=== PATIENT | male | born 1975 | race Caucasian/White ===

== ENCOUNTER 2024-08-25 07:55 | Inpatient (IN) ==
--- NOTE | 2024-07-29 09:39 | PAT Medication Instructions ---
Medication Instructions Date of Service July 29, 2024 Home Medications Beet Root 1 tab PO QAM aspirin 81 mg tablet,delayed release 81 mg PO QAM atorvastatin 80 mg tablet 80 mg PO QAM baclofen 10 mg tablet 10 mg PO TID cholecalciferol (vitamin D3) 25 mcg (1,000 unit) tablet (Vitamin D3) 25 mcg PO QID fenofibrate nanocrystallized 145 mg tablet 145 mg PO QAM fluticasone propionate 50 mcg/actuation nasal spray,suspension 1 spray intranasal QAM insulin glargine 100 unit/mL subcutaneous solution (Lantus U-100 Insulin) 30 unit subcut QAM lisinopril 40 mg tablet 40 mg PO QAM metformin 500 mg tablet 1,000 mg PO BID metoprolol succinate 25 mg tablet,extended release 24 hr 25 mg PO QAM multivitamin 1 tab PO QAM omega 5-bcr-bas-fish oil 1,000 mg (120 mg-180 mg) capsule (Fish Oil) 1 cap PO TID potassium 99 mg tablet 99 mg PO QAM pregabalin 150 mg capsule (Lyrica) 150 mg PO BID semaglutide 0.25 mg or 0.5 mg (2 mg/3 mL) subcutaneous pen injector (Ozempic) 0.5 mg subcut WK ticagrelor 60 mg tablet (Brilinta) 60 mg PO BID tramadol 50 mg tablet 50 mg PO BID ASK your prescriber and surgeon aspirin 81 mg tablet,delayed release 81 mg PO QAM ticagrelor 60 mg tablet (Brilinta) 60 mg PO BID STOP 7 days prior to surgery semaglutide 0.25 mg or 0.5 mg (2 mg/3 mL) subcutaneous pen injector (Ozempic) 0.5 mg subcut WK STOP taking 2 weeks before surgery (or as soon as possible if surgery is within 2 weeks) Beet Root 1 tab PO QAM omega 4-mwj-xhm-fish oil 1,000 mg (120 mg-180 mg) capsule (Fish Oil) 1 cap PO TID STOP taking 48 hours before surgery fenofibrate nanocrystallized 145 mg tablet 145 mg PO QAM DO NOT take the morning of surgery cholecalciferol (vitamin D3) 25 mcg (1,000 unit) tablet (Vitamin D3) 25 mcg PO QID lisinopril 40 mg tablet 40 mg PO QAM metformin 500 mg tablet 1,000 mg PO BID multivitamin 1 tab PO QAM potassium 99 mg tablet 99 mg PO QAM Take morning of surgery With a small sip of water, OTHERWISE NOTHING TO EAT OR DRINK AFTER MIDNIGHT: atorvastatin 80 mg tablet 80 mg PO QAM fluticasone propionate 50 mcg/actuation nasal spray,suspension 1 spray intranasal QAM metoprolol succinate 25 mg tablet,extended release 24 hr 25 mg PO QAM pregabalin 150 mg capsule (Lyrica) 150 mg PO BID tramadol 50 mg tablet 50 mg PO BID Take evening before surgery baclofen 10 mg tablet 10 mg PO TID cholecalciferol (vitamin D3) 25 mcg (1,000 unit) tablet (Vitamin D3) 25 mcg PO QID metformin 500 mg tablet 1,000 mg PO BID pregabalin 150 mg capsule (Lyrica) 150 mg PO BID tramadol 50 mg tablet 50 mg PO BID Insulin Dependent Diabetic Patients * Test your blood sugar the morning of surgery * If Blood Sugar is GREATER THAN 150, take HALF of your regular dose of: insulin glargine 100 unit/mL subcutaneous solution (Lantus U-100 Insulin) > Take 15 units * If Blood Sugar is LESS THAN 150, DO NOT TAKE ANY: insulin glargine 100 unit/mL subcutaneous solution (Lantus U-100 Insulin) Other Notes If you have any questions please call us at [phone] or [phone] or [phone] or [phone]
--- NOTE | 2024-08-04 08:57 | Anesthesiology Consultation ---
Date of Service August 04, 2024 Assessment & Plan (1) Encounter for pre-operative examination: - ASA/Brilinta instructions per surgeon/prescriber - Check BSG DOS - Infectious disease screening: Per assessment on 08/04/24- No known recent infectious disease contacts or current infectious disease symptoms. - GLP-1 medication instructions: Patient informed by PAT to stop 7 days prior to surgery- voiced understanding. DOS 08/25. Advised last dose to be 4/2. - Patient acceptable risk for surgery pending surgeon-ordered PCP (Dr. Shane Worthington, 08/06) and cardio ([facility], appt 08/14) preop evaluations. Chart Review Chart Review: Patient seen in Pre Admission Testing Teaching & Discussion Pre-Anesthesia Teaching/Discussion Notes: Instructed NPO after midnight before surgery,except medications with 15 cc of water. Medication instructions provided according to the PAT guidelines. History Surgery Operation Date: 08/25/24 07:45 Proposed Procedures p L3-S1 Decompression and Fusion with Spinal Cord Monitoring - Brennan Ocampo, Height/Weight Height: 6 ft 6 in Weight: 148.7 kg Allergies Allergy/AdvReac Type Severity Reaction Status Date / Time No Known Allergies Allergy Verified 07/23/24 08:34 Medications Home Medications Medication Instructions Recorded Confirmed Last Taken Beet Root 1 tab PO QAM 07/23/24 07/23/24 Unknown aspirin 81 mg tablet,delayed 81 mg PO QAM 07/23/24 07/23/24 Unknown release atorvastatin 80 mg tablet 80 mg PO QAM 07/23/24 07/23/24 Unknown baclofen 10 mg tablet 10 mg PO TID 07/23/24 07/23/24 Unknown cholecalciferol (vitamin D3) 25 25 mcg PO QID 07/23/24 07/23/24 Unknown mcg (1,000 unit) tablet (Vitamin D3) fenofibrate nanocrystallized 145 145 mg PO QAM 07/23/24 07/23/24 Unknown mg tablet fluticasone propionate 50 1 spray intranasal QAM 07/23/24 07/23/24 Unknown mcg/actuation nasal spray,suspension insulin glargine 100 unit/mL 30 unit subcut HS 07/23/24 08/04/24 Unknown subcutaneous solution (Lantus U-100 Insulin) lisinopril 40 mg tablet 40 mg PO QAM 07/23/24 07/23/24 Unknown metformin 500 mg tablet 1,000 mg PO BID 07/23/24 07/23/24 Unknown metoprolol succinate 25 mg 25 mg PO QAM 07/23/24 07/23/24 Unknown tablet,extended release 24 hr multivitamin 1 tab PO QAM 07/23/24 07/23/24 Unknown omega 6-sqq-pjj-fish oil 1,000 mg 1 cap PO TID 07/23/24 07/23/24 Unknown (120 mg-180 mg) capsule (Fish Oil) potassium 99 mg tablet 99 mg PO QAM 07/23/24 07/23/24 Unknown pregabalin 150 mg capsule (Lyrica) 150 mg PO BID 07/23/24 07/23/24 Unknown semaglutide 0.25 mg or 0.5 mg (2 0.5 mg subcut WK 07/23/24 07/23/24 07/22/24 mg/3 mL) subcutaneous pen injector (Ozempic) ticagrelor 60 mg tablet (Brilinta) 60 mg PO BID 07/23/24 07/23/24 Unknown tramadol 50 mg tablet 50 mg PO BID 07/23/24 07/23/24 Unknown Past Medical History Medical History CAD (coronary artery disease) Chronic back pain "2 crushed discs and 1 blown disc" Degenerative disc disease Diabetes mellitus, type 2 IDDM History of myocardial infarction Stent x1 (2022) Follows with [facility] Hyperlipidemia Hypertension Sleep apnea CPAP (no longer uses machine, device recalled) Spinal stenosis Exercise / Class Metabolic Activity III < 4 Walking/Shop/Light housework (uses walker) Past Family History Family History Father Family history of reaction to anesthesia Father: "flat lined" during hip surgery; no further details FHx: myocardial infarction FHx: stroke Past Surgical History Surgical History History of cardiac cath 2022 > stent x1 S/P epidural steroid injection Past Anesthesia History No Hx of Anesthesia Complications * Father: "flat lined" during hip surgery; no further details History of PONV No Hx of Motion Sickness and History of PONV (mild nausea) Social History Smoking Status: Former smoker Do You Dip or Chew Tobacco: No Smoking End Date: Quit 07/08/24, rare cig use since Hx Alcohol Use: No Hx Substance Use: No substance use type: does not use Review of Systems Patient denies chest pain, shortness of breath, dyspnea on exertion, fever, chills, cough, wheezing. Physical Exam Vital Signs BP 117/77 P 82 TEMP 98.5 SP02 96%RA RESP 16 Physical Full cervical extension range of motion. Full TMJ range of motion. TMD > 3.5 finger breaths Mallampati Score I Dentition: missing sides/molars Lungs: clear throughout to auscultation Cardiac: regular rate and rhythm, no murmurs noted Spine: normal Carotid arteries: negative bruit Extremities: no LE edema Short, thick neck Lab Results Anesthesia Preop Results Results Anesthesia Widget: WBC 7.20 K/ul (4.8-10.8) 08/04/24 Hgb 13.0 g/dl (14.0-18.0) L 08/04/24 Hct 38.8 % (42.0-52.0) L 08/04/24 Plt 257 K/uL (130-400) 08/04/24 Na 137 mmol/L (136-145) 08/04/24 K 4.3 mmol/L (3.5-5.1) 08/04/24 Cl 101 mmol/L (98-107) 08/04/24 CO2 31 mmol/L (21-32) 08/04/24 BUN 13 mg/dl (6-23) 08/04/24 Creat 0.94 mg/dl (0.6-1.4) 08/04/24 Glucose Level 168 mg/dl (70-99(Fasting)) H 08/04/24 PT 10.7 Seconds (9.0-12.0) 08/04/24 PTT 24 Seconds (21-31) 08/04/24 INR 1.0 (0.9-1.1) 08/04/24 HA1c 7.1 % (4.5-5.6) H 08/04/24 Urine Color Yellow 08/04/24 Urine Appearance Clear (Clear) 08/04/24 Urine pH 5.5 (4.5-7.5) 08/04/24 Urine Specific [place] 1.007 (1.000-1.030) 08/04/24 Urine Protein Negative (Negative) 08/04/24 Urine Glucose (UA) Negative (Negative) 08/04/24 Urine Ketones Negative (Negative) 08/04/24 Urine Blood Negative (Negative) 08/04/24 Urine Nitrite Negative (Negative) 08/04/24 Urine Bilirubin Negative (Negative) 08/04/24 Urine Urobilinogen Negative (Negative) 08/04/24 Urine Leukocyte Esterase Negative (Negative) 08/04/24 Blood Type B Positive 08/04/24 Antibody Screen NEGATIVE 08/04/24 Testing Laboratory Results Urine nicotine (08/04/24): Pending (surgeon ordered) Electrocardiogram Date: 08/04/24 NSR at 74bpm. "Normal ECG" Chest X-Ray Date: 08/04/24 Findings: + NAD Cardiac Catheterization Date: 07/10/22 Direct stenting pLAD artery 80% reduced to 0% with [place] MYRTLE. LAD proximal 80% stenosis, D1 proximal 80% stenosis. RCA proximal 100% representing a chronic total occlusion (fills via [id number] collaterals). Normal LV systolic function.
[~2024-08-25 07:55] MED LIST: DEXAMETHASONE SOD INJ 4 MG/ML VIAL ONE; GLYCOPYRROLATE 0.2 MG/ML VIAL ONE; LIDOCAINE 2% 2 ML VIAL/AMP(20MG/ML) INFIL ONE; MIDAZOLAM HCL 1 MG/ML 2ML VIAL ONE; ONDANSETRON INJ 2 MG/ML 2 ML VIAL ONE; PROPOFOL IV EMULSION 10 MG/ML 20 ML VIAL IV ONE; ROCURONIUM BROMIDE 10 MG/ML 5 ML VIAL IV ONE; SUGAMMADEX SODIUM 200 MG/2 ML VIAL IV ONE; fentaNYL citrate PF 100 MCG/2 ML VIAL ONE
[2024-08-25] MEDS: LR 15ML/HR IV SCH (08:32)
[2024-08-25] MEDS: ACETAMINOPHEN 500 MG TAB PO SCH (08:52)
[2024-08-25] MEDS: LR 60ML/HR IV SCH (08:52)
[2024-08-25] MEDS: GABAPENTIN 900 MG DOSE PO SCH (08:52)
[2024-08-25] MEDS: CeleBREX 200 MG CAP PO SCH (08:52)
--- NOTE | 2024-08-25 09:20 | History & Physical Bridge Note ---
Date of Service August 25, 2024 History & Physical Bridge Note I have examined the patient, reviewed the History & Physical and in the interval since the performance of the History & Physical I have noted the following changes of clinical significance: no changes noted
--- NOTE | 2024-08-25 09:21 | History & Physical Report ---
Date of Service August 25, 2024 Assessment & Plan (1) Multilevel lumbosacral spondylosis with radiculopathy: Plan: L3-S1 decompression and fusion definitely History of Present Illness Chief Complaint: Back and leg pain Primary Care Provider: Shane Worthington This is a 49-year-old male who presents with chronic persistent back and leg pain after failing course of nonoperative care is here for surgical intervention. Allergies Allergy/AdvReac Type Severity Reaction Status Date / Time shellfish derived Allergy Intermediate severe Verified 08/25/24 08:22 rash with allergy testing Home Medications Medication Instructions Recorded Confirmed Type Beet Root 1 tab PO QAM 07/23/24 08/25/24 History aspirin 81 mg tablet,delayed 81 mg PO QAM 07/23/24 08/25/24 History release atorvastatin 80 mg tablet (Lipitor) 80 mg PO QAM 07/23/24 08/25/24 History baclofen 10 mg tablet 10 mg PO TID 07/23/24 08/25/24 History cholecalciferol (vitamin D3) 25 25 mcg PO DAILY 07/23/24 08/25/24 History mcg (1,000 unit) tablet (Vitamin D3) fenofibrate nanocrystallized 145 145 mg PO QAM 07/23/24 08/25/24 History mg tablet (Tricor) fluticasone propionate 50 1 spray intranasal QAM 07/23/24 08/25/24 History mcg/actuation nasal spray,suspension insulin glargine 100 unit/mL 30 unit subcut HS 07/23/24 08/25/24 History subcutaneous solution (Lantus U-100 Insulin) lisinopril 40 mg tablet (Zestril) 40 mg PO QAM 07/23/24 08/25/24 History metformin 500 mg tablet 1,000 mg PO BID 07/23/24 08/25/24 History metoprolol succinate 25 mg 25 mg PO QAM 07/23/24 08/25/24 History tablet,extended release 24 hr (Toprol XL) multivitamin 1 tab PO QAM 07/23/24 08/25/24 History omega 2-vzu-nsa-fish oil 1,000 mg 1 cap PO TID 07/23/24 08/25/24 History (120 mg-180 mg) capsule (Fish Oil) potassium 99 mg tablet 99 mg PO QAM 07/23/24 08/25/24 History pregabalin 150 mg capsule (Lyrica) 150 mg PO BID 07/23/24 08/25/24 History semaglutide 0.25 mg or 0.5 mg (2 0.5 mg subcut WK 07/23/24 08/25/24 History mg/3 mL) subcutaneous pen injector (Ozempic) ticagrelor 60 mg tablet (Brilinta) 60 mg PO BID 07/23/24 08/25/24 History tramadol 50 mg tablet 50 mg PO BID 07/23/24 08/25/24 History Past Med/Surg History Problem List (Updated 08/25/24 @ 09:21 by Brennan Ocampo DO) Multilevel lumbosacral spondylosis with radiculopathy Encounter for pre-operative examination Medical History CAD (coronary artery disease) Chronic back pain "2 crushed discs and 1 blown disc" Degenerative disc disease Diabetes mellitus, type 2 IDDM History of myocardial infarction Stent x1 (2022) Follows with [facility] Hyperlipidemia Hypertension Sleep apnea CPAP (no longer uses machine, device recalled) Spinal stenosis Surgical History History of cardiac cath 2022 > stent x1 S/P epidural steroid injection Family History Father Family history of reaction to anesthesia Father: "flat lined" during hip surgery; no further details FHx: myocardial infarction FHx: stroke Social History Smoking Status: Former smoker Tobacco Type: Cigarettes Smoking End Date: Quit 07/08/24, rare cig use since; Second Hand Exposure: No; Do You Dip or Chew Tobacco: No; Tobacco Cessation Education Requested by Patient: No Hx Alcohol Use: No Hx Substance Use: No Preferred Language: Kyrgyz Communication Ability: Effective Sanitation Officer Required: No Beliefs That Will Affect Care: None Current Living Situation: Family Current Living Situation Comment: son has been living with patient since back injury Other Information That Helps Us Care for You: No Feels Safe at Home: Yes Safety Concerns: Feels Safe At This Time Assistive Devices: Cane, Glasses and Walker Assistive Devices Comment: rollator Physical Exam Physical Exam: Patient is alert and oriented Heart rate and rhythm Lungs clear Results & Data Results & Data Vital Signs (Past 12 Hours) Vital Signs Temp Pulse Resp BP Pulse Ox O2 Del Method 08/25/24 08:30 Room Air 08/25/24 08:30 36.8 C 84 20 170/93 H 93 Room Air
[2024-08-25] MEDS ORDERED: ePHEDrine sulfate 50 MG/ML AMP IV PRN (09:24)
[2024-08-25] MEDS ORDERED: ONDANSETRON INJ 2 MG/ML 2 ML VIAL IV PRN ×2 (09:24→15:44)
[2024-08-25] MEDS ORDERED: ATROPINE SULFATE 0.1 MG/ML 10ML SYR IV PRN (09:24)
[2024-08-25] MEDS: ceFAZolin 3000MG 3,000 MG/72.5 ML BAG IV SCH ×2 (09:45→18:01)
[2024-08-25] MEDS ORDERED: KETAMINE HCL 10MG/ML SYR ONE (09:46)
[2024-08-25] MEDS ORDERED: ROCURONIUM BROMIDE 10 MG/ML 5 ML VIAL IV ONE ×3 (10:05→11:25)
[2024-08-25] MEDS ORDERED: fentaNYL citrate PF 100 MCG/2 ML VIAL ONE ×2 (10:12→11:47)
[2024-08-25] MEDS: BUPIVACAINE/EPINEPHRINE 0.25% 1:200,000 30 ML VIAL ONE (10:15)
[2024-08-25] MEDS: ceFAZolin 330 MG/ML 1 GM VIAL ONE (12:23)
[2024-08-25] MEDS: FLOSEAL HEMOSTATIC MATRIX 10ML TOP ONE (12:23)
--- NOTE | 2024-08-25 12:42 | Operative Report ---
Post Operative Report Pre & Post Diagnosis Operation Date: 08/25/24 09:35 Pre-Op Diagnosis: #1 multilevel lumbosacral spondylosis with radiculopathy #2 lumbar spinal stenosis #3 obesity Post-Op Diagnosis: Same I identified the patient and participated in the time-out.: Yes Procedure Operation Date: 08/25/24 09:35 Actual Procedures #1 lumbar decompression with bilateral medial facetectomies and foraminotomies L3-L4, L4-L5 and L5-S1. #2 posterior spinal fusion L3-S1. #3 placement posterior segmental instrumentation L3-S1 using Borjas. #4 interbody fusion L3- L4, L4-L5 and L5-S1. #5 placement Spira 13 x 26 mm at L3-L4, 15 x 26 mm x 2 at L4-L5 and 13 x 26 mm x 2 at L5-S1. #6 placement locally harvested morselized autograft posterior gutters. #7 placement infuse collagen sponge, with Koros in the posterior lateral gutters and os design in the interbody space. #8 application of versa wrap over the exposed dura. Surgeon Brennan Ocampo, DO Tractor Drill Operator Laura Zelaya Estimated Blood Loss 650 Findings See Below The patient is 6 foot 6 weighing over 151 kg with a BMI in excess of 38. This combined with an EBL of greater than 650 cc created significant technical difficulty required deepest retractors longer instruments in order to perform his procedure. This had at least 50% increased operative time. I am recommending a modifier 22. Specimens None Indications This is a 49-year-old male that presents above diagnosis. After undergoing an extensive course of nonoperative care is here for surgical invention. Description of Procedure Patient met with identified informed consent obtained. Patient was then taken to the operative suite underwent intubation placed in a prone position on the Spencer table top of the Jm frame. All bony promises well-padded eyes inspected to ensure no external pressure placed upon them. This point lumbar spine was prepped and draped in the normal sterile fashion. Sharp dissection with the assistance of Bovie cautery performed down to and exposing the lamina transverse processes of L3-L4-L5 and the sacral ala bilaterally. From a caudal cephalad fashion complete laminectomy of L5 was performed including bilateral medial facetectomies and foraminotomies addressing all neural compression. Then proceeded with complete laminectomy of L4 again including bilateral medial facetectomies and foraminotomies addressing all neural compression and lastly complete laminectomy of L3 with bilateral medial facetectomies and foraminotomies addressing all neural compression. Pedicle screws then placed in L3-L4-L5 and S1 levels bilaterally with assistance of fluoroscopy and appropriate sized lennie contoured and placed. By way of transforaminal approach on the right discectomy of L5-S1 was performed endplates guided to subcortical bleeding bone and a 13 x 26 mm spiral cage filled with os design bone graft at the position. Then proceeded to the left transforaminal region at L5-S1. Again discectomy performed. Endplates guided to subcortical being bone and a second 13 x 26 mm spiral cage filled with os design bone graft at the position. Then proceeded L4-[address] transforaminal approach on the left discectomy was performed. Endplates guided to subcortical bleeding bone and a 15 x 26 mm spi ral cage filled with os design bone graft tapped in position. Then proceeded to the right transforaminal region at L4-5. Again discectomy performed. Endplates guided to subcortical bleeding bone. A second 15 x 26 mm spiral cage filled with os design tapped in position. Lastly approached L3-L4 and by way of transforaminal approach on the right a complete discectomy was performed endplates corrected to subcortical bleeding bone and a 14 x 26 mm spiral cage filled with os design bone graft tapped in position. The rods were then compressed locked in final position bilaterally. The transverse processes of L3 L4-5 and the sacral ala burred to subcortical bleeding bone. Infuse collagen sponge, with Koros and local autograft placed in the posterior lateral gutters. First wrap placed over the exposed dura. 15 round SARAH inserted. The incision was then 1 Vicryl the fascia 2-0 Vicryl subcutaneously and 4 Monocryl for final skin closure. Steri-Strips sterile dressing placed. Patient waken taken to PACU in stable condition. Please note spinal cord monitoring was utilized at the procedure no changes noted. Laura Zelaya was present at the entire surgery and from the patient positioning complex portion of the surgery and final skin closure. I attest to the content of the Intraoperative Record and any orders documented therein. Any exceptions are noted below.
[2024-08-25] MEDS: fentaNYL citrate PF 100 MCG/2 ML VIAL IV PRN (13:15)
[2024-08-25] MEDS ORDERED: HYDROmorphone INJ 1 MG/ML SYRINGE IV PRN (13:30)
[2024-08-25] MEDS: HYDROmorphone INJ 2 MG/ML SYR/VIAL ONE (13:35)
--- NOTE | 2024-08-25 14:05 | Fluoroscopy Report ---
FL lumbar spine 2-3V CLINICAL HISTORY: L3-S1 DECOMPRESSION AND FUSION COMPARISON STUDY: None FLUOROSCOPY TIME: 30 seconds FLUOROSCOPY IMAGES: 4 EXPOSURE DOSE: 33 mGy FINDINGS: Fluoroscopy was provided for lumbar fusion. IMPRESSION: Intraoperative fluoroscopy. ACT 112: Negative or not required by law. Electronically signed by: Tyron Mendez M.D. 08/25/2024 2:04 PM
--- NOTE | 2024-08-25 14:39 | Anesthesiology Progress Note ---
Date of Service August 25, 2024 Anesthesia Post Procedure Vital Signs Vital Signs: Temp Pulse Pulse Resp BP Pulse Ox O2 Del Method 08/25/24 14:30 36.4 C L 85 19 108/66 94 Oxymask 08/25/24 14:20 88 19 116/70 97 Oxymask 08/25/24 14:10 92 H 19 121/81 96 Oxymask 08/25/24 14:00 81 19 112/69 94 Oxymask 08/25/24 13:50 84 19 111/69 94 Oxymask 08/25/24 13:40 90 19 128/75 96 Oxymask 08/25/24 13:30 90 19 130/75 95 Oxymask 08/25/24 13:20 88 19 113/74 94 Oxymask 08/25/24 13:10 93 H 22 114/68 97 Oxymask 08/25/24 13:00 90 20 112/65 96 Oxymask 08/25/24 12:50 36.1 C L 86 20 112/70 97 Oxymask 08/25/24 08:30 Room Air 08/25/24 08:30 36.8 C 84 20 170/93 H 93 Room Air O2 Flow Rate 08/25/24 14:30 5 08/25/24 14:20 5 08/25/24 14:10 5 08/25/24 14:00 5 08/25/24 13:50 5 08/25/24 13:40 5 08/25/24 13:30 5 08/25/24 13:20 5 08/25/24 13:10 5 08/25/24 13:00 8 08/25/24 12:50 8 08/25/24 08:30 08/25/24 08:30 Pain Intensity Right Leg: Pain Intensity: 6 Transfer of Care Handoff Completed per policy Notes Mental Status: alert / awake / arousable and participated in evaluation Patient Amnestic to Procedure: Yes Nausea / Vomiting: adequately controlled Pain: adequately controlled Airway Patency, RR, SpO2: stable & adequate BP & HR: stable & adequate Hydration State: stable & adequate Anesthetic Complications: no major complications apparent and Pt Satisfied with anesthetic care
[2024-08-25] MEDS ORDERED: PHARMACY GLYCEMIC MGMT CONSULT PRN (15:44)
[2024-08-25] MEDS ORDERED: NALOXONE HCL 0.4 MG/1 ML VIAL/CARP IV PRN (15:44)
[2024-08-25] MEDS ORDERED: METOCLOPRAMIDE HCL INJ 5 MG/ML 2 ML VIAL IV PRN (15:44)
[2024-08-25] MEDS ORDERED: hydrOXYzine HCl 25 MG TAB PO PRN (15:44)
[2024-08-25] MEDS ORDERED: LORazepam 2 MG/1 ML VIAL IV PRN (15:44)
[2024-08-25] MEDS ORDERED: DO NOT ADMINISTER FLU VACCINE PRN (15:44)
[2024-08-25] MEDS ORDERED: DO NOT ADMINISTER PNEUMOCOCCAL VACCINE PRN (15:44)
[2024-08-25] MEDS ORDERED: HYDROmorphone INJ 0.5 MG/0.5 ML SYR IV PRN (15:44)
[2024-08-25] MEDS ORDERED: SOD PHOSPHATE/SOD BIPHOSPHATE ENEMA 132 ML BTL PR PRN (15:44)
[2024-08-25] MEDS ORDERED: ACETAMINOPHEN 500 MG TAB PO PRN (15:44)
[2024-08-25] MEDS ORDERED: bisacodyL 10 MG SUPP PR PRN (15:44)
[2024-08-25] MEDS ORDERED: FAMOTIDINE 20 MG TAB PO PRN (15:44)
[2024-08-25] MEDS ORDERED: ONDANSETRON 4 MG OD TAB PO PRN (15:44)
[2024-08-25] MEDS ORDERED: ALUMINUM/MAGNESIUM SUSP 30 ML UDC PO PRN (15:44)
[2024-08-25] MEDS ORDERED: PROMETHAZINE 12.5 MG/50.5 ML BAG IV PRN (15:44)
[2024-08-25] MEDS ORDERED: LORazepam 0.5 MG TAB PO PRN (15:44)
[2024-08-25] MEDS ORDERED: diphenhydrAMINE Capsule 25 MG CAP PO PRN (15:44)
[2024-08-25] MEDS: ACETAMINOPHEN 1,000 MG/100 ML VIAL IV PRN (16:05)
[2024-08-25] MEDS: BACLOFEN 10 MG TAB PO SCH (16:05)
[2024-08-25] MEDS ORDERED: CARBOHYDRATES FOR HYPOGLYCEMIA PO PRN (16:15)
[2024-08-25] MEDS ORDERED: GLUCOSE 10 TAB/TUBE PO PRN (16:15)
[2024-08-25] MEDS ORDERED: GLUCOSE 40% GEL 15 GM TUBE PO PRN (16:15)
[2024-08-25] MEDS ORDERED: GLUCAGON FOR INJ 1 MG VIAL SQ PRN (16:15)
[2024-08-25] MEDS ORDERED: DEXTROSE 50% 50 ML SYRINGE IV PRN (16:15)
--- NOTE | 2024-08-25 16:57 | Consultation ---
Date of Consultation August 25, 2024 Assessment & Plan (1) Multilevel lumbosacral spondylosis with radiculopathy: (2) CAD (coronary artery disease): (3) Diabetes mellitus, type 2: (4) Hypertension: (5) Hyperlipidemia: Plan 49 year old male with PMH significant for CAD and NSTEMI s/p cath and stent placement (2022), DMII, HTN, HLD, FELIX, and multilevel lumbosacral spondylosis with radiculopathy who is status post L3-S1 decompression and fusion by Dr. Ocampo whom we were consulted for post operative medical management. Multilevel lumbosacral spondylosis with radiculopathy s/p L3-S1 decompression and fusion Post op day 0 Pain control, DVT prophylaxis, and activity per primary team SARAH drain management per primary team Encourage incentive spirometry Monitor AM labs for post op anemia CAD, HLD Holding Brilinta until cleared by primary team Continue baby aspirin, atorvastatin, metoprolol per home dosing DMII Patient reports adequate glycemic control with sugars ranging 80-120 Patient is on ozempic at home - holding while inpt Monitor ACHS blood sugars SSI insulin and lantus 20 units HS (home dose is 30 units HS) while inpatient Pharmacy consult placed by primary team HTN Patient reports blood pressures are well controlled since adding beet root to his medication regimen Monitor BPs overnight Holding lisinopril - consider resuming in am if hypertensive Patient seen in collaboration with Dr Perry. Please see addendum. Thank you for this consultation. We will continue to follow this patient with you. A member of the [facility]ist team is available 03/12 via the role in [employer] - please don't hesitate to reach out with questions. I spent a total of 70 minutes coordinating, documenting and providing care for this patient excluding time spent in the performance of separately billed services or time spent by another provider/QHP. Supervising Physician Co-Signing Physician Notes Patient seen and examined independently. Discussed with above provider. He is lying on the bed comfortably; denies any fever, chills, chest pain, shortness of breath, abdominal pain or urinary symptoms. Continue pain control, bowel regimen, PT OT and DVT prophylaxis as per primary. Brilinta currently on hold; resume when cleared by surgery. Lisinopril currently on hold for tomorrow; resume if blood pressure increases. I have reviewed the advanced practitioner's documentation, and I agree with, and take responsibility for the plan of care I spent a total of 20 minutes coordinating, documenting, and providing care for this patient excluding time spent in the performance of separately billed services. All of the aforementioned completed while collaborating with the assigned advanced practitioner for a full treatment plan History of Present Illness Requesting Physician: Brennan Ocampo DO Reason for Consultation: Post operative medical management Attending Physician: Brennan Ocampo DO History of Present Illness 49 year old male with PMH significant for CAD and NSTEMI s/p cath and stent placement (2022), DMII, HTN, HLD, FELIX, and multilevel lumbosacral spondylosis with radiculopathy who is status post L3-S1 decompression and fusion by Dr. Ocampo whom we were consulted for post operative medical management. He explains that he injured his back lifting and carrying a 250lb frame in May of 2023. He had significant back and leg pain with radiculopathy that was unresponsive to medical management which prompted him to get surgery. He reports that he stopped smoking cigarettes in order to qualify for surgery. He follows with [facility] for his CAD and HTN and was medically cleared by them to have surgery. His PCP is Emeka Galvan MD. He notes that he developed diabetes after his accident due to being sedentary. He lives at home with his son. He uses a rollator to ambulate. Patient was seen sitting up in bed. He reports 9/10 low back pain and 7/10 bilateral leg pain with associated numbness and tingling of his bilateral legs. He denies dizziness, lightheadedness, fever, chills, chest pain, SOB, abdominal pain, N/V, dysphagia. He states he is hungry and excited to eat dinner. Allergies Allergy/AdvReac Type Severity Reaction Status Date / Time shellfish derived Allergy Intermediate severe Verified 08/25/24 08:22 rash with allergy testing Home Medications Medication Instructions Recorded Confirmed Type Beet Root 1 tab PO QAM 07/23/24 08/25/24 History aspirin 81 mg tablet,delayed 81 mg PO QAM 07/23/24 08/25/24 History release atorvastatin 80 mg tablet (Lipitor) 80 mg PO QAM 07/23/24 08/25/24 History baclofen 10 mg tablet 10 mg PO TID 07/23/24 08/25/24 History cholecalciferol (vitamin D3) 25 25 mcg PO DAILY 07/23/24 08/25/24 History mcg (1,000 unit) tablet (Vitamin D3) fenofibrate nanocrystallized 145 145 mg PO QAM 07/23/24 08/25/24 History mg tablet (Tricor) fluticasone propionate 50 1 spray intranasal QAM 07/23/24 08/25/24 History mcg/actuation nasal spray,suspension insulin glargine 100 unit/mL 30 unit subcut HS 07/23/24 08/25/24 History subcutaneous solution (Lantus U-100 Insulin) lisinopril 40 mg tablet (Zestril) 40 mg PO QAM 07/23/24 08/25/24 History metformin 500 mg tablet 1,000 mg PO BID 07/23/24 08/25/24 History metoprolol succinate 25 mg 25 mg PO QAM 07/23/24 08/25/24 History tablet,extended release 24 hr (Toprol XL) multivitamin 1 tab PO QAM 07/23/24 08/25/24 History omega 8-cxm-qxa-fish oil 1,000 mg 1 cap PO TID 07/23/24 08/25/24 History (120 mg-180 mg) capsule (Fish Oil) potassium 99 mg tablet 99 mg PO QAM 07/23/24 08/25/24 History pregabalin 150 mg capsule (Lyrica) 150 mg PO BID 07/23/24 08/25/24 History semaglutide 0.25 mg or 0.5 mg (2 0.5 mg subcut WK 07/23/24 08/25/24 History mg/3 mL) subcutaneous pen injector (Ozempic) ticagrelor 60 mg tablet (Brilinta) 60 mg PO BID 07/23/24 08/25/24 History tramadol 50 mg tablet 50 mg PO BID 07/23/24 08/25/24 History Patient History Medical History (Updated 08/25/24 @ 17:08 by HILL Simmons) Encounter for pre-operative examination Spinal stenosis Degenerative disc disease Chronic back pain "2 crushed discs and 1 blown disc" Sleep apnea CPAP (no longer uses machine, device recalled) History of myocardial infarction Stent x1 (2022) Follows with [facility] Surgical History S/P epidural steroid injection History of cardiac cath 2022 > stent x1 Family History Father Family history of reaction to anesthesia Father: "flat lined" during hip surgery; no further details FHx: myocardial infarction FHx: stroke Social History Smoking Status: Former smoker Tobacco Type: Cigarettes Smoking End Date: Quit 07/08/24, rare cig use since; Second Hand Exposure: No; Do You Dip or Chew Tobacco: No; Tobacco Cessation Education Requested by Patient: No Hx Alcohol Use: No Hx Substance Use: No Preferred Language: Polish Communication Ability: Effective Quality Improvement Specialist Required: No Beliefs That Will Affect Care: None Current Living Situation: Family Current Living Situation Comment: son has been living with patient since back injury Other Information That Helps Us Care for You: No Feels Safe at Home: Yes Safety Concerns: Feels Safe At This Time Assistive Devices: Cane, Glasses and Walker Assistive Devices Comment: rollator Review of Systems Review of Systems: All systems reviewed & are unremarkable except as noted in HPI & below Physical Exam Physical Exam: General/Psych: WD/WN, sitting up in bed, in pain but conversing easily, euthymic affect Head: normocephalic, atraumatic Eyes: normal inspection, PERRL, conjunctivae pink, anicteric sclerae ENT: external ear and nose normal, oropharynx normal Neck: normal visual inspection, trachea midline, no thyromegaly Respiratory: normal respiratory effort, lungs clear to auscultation, no wheeze/rales/rhonchi, no accessory muscle use Cardiovascular: regular rate and rhythm, no murmur/rub/gallop, no JVD Extremities: no cyanosis or clubbing, normal peripheral pulses, no BLE edema, TEDs and SCDs in place Abdomen/GI: normal bowel sounds, soft, nontender, no hepatosplenomegaly Neurologic/MSK: A+Ox3, motor strength 5/5, moves all extremities, sensation intact to BLE Skin: no rashes, normal color, warm and dry, island dressing clean/dry/intact and SARAH drain at surgical incision site Results & Data Vital Signs (Past 12 Hours) Vital Signs Temp Pulse Pulse Resp BP Pulse Ox O2 Del Method 08/25/24 15:00 84 19 119/70 95 Nasal Cannula 08/25/24 14:45 85 19 118/73 94 Nasal Cannula 08/25/24 14:30 36.4 C L 85 19 108/66 94 Oxymask 08/25/24 14:20 88 19 116/70 97 Oxymask 08/25/24 14:10 92 H 19 121/81 96 Oxymask 08/25/24 14:00 81 19 112/69 94 Oxymask 08/25/24 13:50 84 19 111/69 94 Oxymask 08/25/24 13:40 90 19 128/75 96 Oxymask 08/25/24 13:30 90 19 130/75 95 Oxymask 08/25/24 13:20 88 19 113/74 94 Oxymask 08/25/24 13:10 93 H 22 114/68 97 Oxymask 08/25/24 13:00 90 20 112/65 96 Oxymask 08/25/24 12:50 36.1 C L 86 20 112/70 97 Oxymask 08/25/24 08:30 Room Air 08/25/24 08:30 36.8 C 84 20 170/93 H 93 Room Air O2 Flow Rate 08/25/24 15:00 4 08/25/24 14:45 4 08/25/24 14:30 5 08/25/24 14:20 5 08/25/24 14:10 5 08/25/24 14:00 5 08/25/24 13:50 5 08/25/24 13:40 5 08/25/24 13:30 5 08/25/24 13:20 5 08/25/24 13:10 5 08/25/24 13:00 8 08/25/24 12:50 8 08/25/24 08:30 08/25/24 08:30 Medications Administered Current Inpatient Medications Acetaminophen (Acetaminophen 500 Mg Tab) 1,000 mg PO PREOP AZAEL Stop: 08/25/24 18:00 Last Admin: 08/25/24 08:52 Dose: 1,000 mg Acetaminophen (Acetaminophen 500 Mg Tab) 1,000 mg PO Q8H PRN PRN Reason: MILD Pain Scale 1,2,3 & Pre PT Stop: 09/24/24 15:43 Al Hydrox/Mg Hydrox/Simethicone (Aluminum/Magnesium Susp 30 Ml Udc) 30 ml PO Q6H PRN PRN Reason: Dyspepsia Stop: 09/24/24 15:43 Aspirin (Aspirin 81 Mg Ectab) 81 mg PO QAM [facility] Stop: 09/25/24 08:59 Atorvastatin Calcium (Atorvastatin 40 Mg Tab) 80 mg PO QAM [facility] Stop: 09/25/24 08:59 Atropine Sulfate (Atropine Sulfate 0.1 Mg/Ml 10ml Syr) 0.5 mg IV Q1M PRN PRN Reason: PACU Use-HR<40 &/or Bradycardi Stop: 08/25/24 17:24 Baclofen (Baclofen 10 Mg Tab) 10 mg PO TID AZAEL Stop: 09/24/24 15:43 Last Admin: 08/25/24 16:05 Dose: 10 mg Bisacodyl (Bisacodyl 10 Mg Supp) 10 mg MT DAILY PRN PRN Reason: Constipation Stop: 09/24/24 15:43 Celecoxib (Celebrex 200 Mg Cap) 200 mg PO PREOP AZAEL Stop: 08/25/24 18:00 Last Admin: 08/25/24 08:52 Dose: 200 mg Dextrose (Dextrose 50% 50 Ml Syringe) 25 - 50 ml IV UD PRN; Protocol PRN Reason: Hypoglycemia Protocol Stop: 09/24/24 16:14 Diphenhydramine HCl (Diphenhydramine Capsule 25 Mg Cap) 25 mg PO Q6H PRN PRN Reason: Allergic Rhinitis/Insomnia Stop: 09/24/24 15:43 Ephedrine Sulfate (Ephedrine Sulfate 50 Mg/Ml Amp) 5 mg IV Q5M PRN PRN Reason: PACU Use Only-SBP<90 mmHg Stop: 08/25/24 17:24 Famotidine (Famotidine 20 Mg Tab) 20 mg PO Q12H PRN PRN Reason: Dyspepsia Stop: 09/24/24 15:43 Fenofibrate (Fenofibrate Nanocrystallized 145 Mg Tablet) 145 mg PO QAM [facility] Stop: 09/25/24 08:59 Fluticasone Propionate (Fluticasone Propionate Na Spr 16 Gm Btl) 1 sprays NA QAM [facility] Stop: 09/25/24 08:59 Gabapentin (Gabapentin 900 Mg Dose) 900 mg PO PREOP AZAEL Stop: 08/25/24 18:00 Last Admin: 08/25/24 08:52 Dose: 900 mg Glucagon (Glucagon For Inj 1 Mg Vial) 1 mg SQ UD PRN; Protocol PRN Reason: Hypoglycemia Protocol Stop: 09/24/24 16:14 Glucose (Glucose 40% Gel 15 Gm Tube) 15 - 30 gm PO UD PRN; Protocol PRN Reason: Hypoglycemia Protocol Stop: 09/24/24 16:14 Glucose (Glucose 10 Tab/Tube) 4 - 8 tab PO UD PRN; Protocol PRN Reason: Hypoglycemia Protocol Stop: 09/24/24 16:14 Hydromorphone HCl (Hydromorphone Inj 1 Mg/Ml Syringe) 0.25 mg IV Q5M PRN PRN Reason: PACU Use Only-Pain Stop: 08/25/24 21:30 Hydromorphone HCl (Hydromorphone Inj 0.5 Mg/0.5 Ml Syr) 0.5 mg IV Q3H PRN PRN Reason: MODERATE Pain (Scale 4,5,6) & Pre PT Stop: 09/08/24 15:43 Hydromorphone HCl (Hydromorphone Inj 1 Mg/Ml Syringe) 1 mg IV Q3H PRN PRN Reason: SEVERE Pain (Scale 7,8,9,10) Stop: 09/08/24 15:43 Hydroxyzine HCl (Hydroxyzine Hcl 25 Mg Tab) 25 mg PO Q8H PRN PRN Reason: Anxiety Stop: 09/24/24 15:43 Lactated Ringer's (Lr) 1,000 mls @ 15 mls/hr IV .Q24H AZAEL Stop: 08/26/24 05:59 Last Infusion: 08/25/24 09:45 Dose: Infused Lactated Ringer's (Lr) 1,000 mls @ 60 mls/hr IV .[id number] AZAEL Stop: 08/25/24 22:39 Last Admin: 08/25/24 08:52 Dose: Not Given Cefazolin Sodium (Ancef 3000mg) 3,000 mg in 72.5 mls @ 130 mls/hr IV PREOP AZAEL; Protocol Stop: 08/25/24 18:00 Last Admin: 08/25/24 09:45 Dose: 130 mls/hr Acetaminophen (Ofirmev) 1,000 mg in 100 mls @ 400 mls/hr IV Q8H PRN PRN Reason: Pain Rating 1-3 & Pre PT Stop: 08/26/24 15:44 Last Admin: 08/25/24 16:05 Dose: 400 mls/hr Promethazine HCl (Phenergan) 12.5 mg in 50.5 mls @ 202 mls/hr IV Q6H PRN PRN Reason: Nausea And Vomiting Stop: 09/24/24 15:43 Cefazolin Sodium (Ancef 3000mg) 3,000 mg in 72.5 mls @ 130 mls/hr IV Q8H [facility] Stop: 08/26/24 03:19 Dexamethasone 6 mg/ Syringe 1.5 mls @ 1 mls/min IV DAILY [facility] Stop: 08/28/24 09:02 Influenza Virus Vaccine Quadrival (Do Not Administer Flu Vaccine) 1 each N/A PRN PRN PRN Reason: Notification Stop: 09/24/24 15:43 Insulin Aspart (Insulin Aspart Per Unit Charge) 0 units SC [facility] Stop: 09/24/24 16:29 Ketorolac Tromethamine (Ketorolac 30 Mg/Ml Vial) 30 mg IV Q6H PRN PRN Reason: Pain Lisinopril ([facility] 40 Mg Tab) [facility] Stop: 09/25/24 08:59 Lorazepam (Lorazepam 0.5 Mg Tab) 0.5 mg PO Q8H PRN PRN Reason: Sedation/Anxiety Stop: 09/24/24 15:43 Lorazepam (Lorazepam 2 Mg/1 Ml Vial) 0.5 mg IV Q8H PRN PRN Reason: Sedation/Anxiety Stop: 09/24/24 15:43 Magnesium Hydroxide (Magnesium Hydroxide Susp 30 Ml Udc) 30 ml PO Q24H PRN PRN Reason: Constipation Stop: 09/24/24 15:43 Metoclopramide HCl (Metoclopramide Hcl Inj 5 Mg/Ml 2 Ml Vial) 10 mg IV Q6H PRN PRN Reason: Nausea &/or Vomiting Stop: 09/24/24 15:43 Metoprolol Succinate (Metoprolol Succ 25mg Ext Rel Tab) 25 mg PO QAM [facility] Stop: 09/25/24 08:59 Miscellaneous (Order Awaiting Action [Ticagrelor [Brilinta] 60 Mg Tablet]) 1 each N/A QS AZAEL Stop: 09/24/24 15:59 Miscellaneous (Carbohydrates For Hypoglycemia ) 15 - 30 gm PO UD PRN PRN Reason: Hypoglycemia Treatment Stop: 09/24/24 16:14 Miscellaneous Information (Pharmacy Glycemic Mgmt Consult) 1 each N/A UD PRN PRN Reason: Consult Stop: 09/24/24 15:43 Multivitamins (Multivitamin Tab) 1 tab PO QAM AZAEL Stop: 09/25/24 08:59 Naloxone HCl (Naloxone Hcl 0.4 Mg/1 Ml Vial/Carp) 0.1 mg IV Q5M PRN PRN Reason: Oversedation/Resp depression Stop: 09/24/24 15:43 Ondansetron HCl (Ondansetron Inj 2 Mg/Ml 2 Ml Vial) 4 mg IV ONCE PRN PRN Reason: PACU Use Only-Nausea/Vomiting Stop: 08/25/24 17:24 Ondansetron HCl (Ondansetron Inj 2 Mg/Ml 2 Ml Vial) 4 mg IV Q6H PRN PRN Reason: Nausea &/or Vomiting Stop: 09/24/24 15:43 Ondansetron HCl (Ondansetron 4 Mg Od Tab) 4 mg PO Q6H PRN PRN Reason: Nausea Stop: 09/24/24 15:43 Oxycodone HCl (Oxycodone Hcl Ir 5 Mg Tab (Immediate Release)) 5 - 10 mg PO Q4H PRN PRN Reason: Pain & Pre PT Stop: 09/08/24 15:43 Pneumococcal Polyvalent Vaccine (Do Not Administer Pneumococcal Vaccine) 1 each N/A PRN PRN PRN Reason: Notification Stop: 09/24/24 15:43 Polyethylene Glycol (Polyethylene (Miralax) 17 Gm Pack) 17 gm PO Q6 AZAEL Stop: 09/25/24 05:59 Pregabalin (Pregabalin 150 Mg Cap) 150 mg PO BID AZAEL Stop: 09/24/24 20:59 Senna/Docusate Sodium (Docusate Sodium/Senna 50/8.6mg Tab) 2 tab PO HS AZAEL Stop: 09/24/24 20:59 Sodium Biphosphate/Sodium Phosphate (Sod Phosphate/Sod Biphosphate Enema 132 Ml Btl) 132 ml MT ONE PRN PRN Reason: Constipation Stop: 09/24/24 15:43 Tramadol HCl (Tramadol Hcl 50 Mg Tablet) 50 - 100 mg PO Q4H PRN PRN Reason: Moderate-Severe pain & Pre PT Stop: 09/24/24 15:43 Vitamin D (Cholecalciferol 25 Mcg (1000 Units) Tab) 25 mcg PO DAILY AZAEL Stop: 09/25/24 08:59
[2024-08-25] MEDS: oxyCODONE HCL IR 5 MG TAB (IMMEDIATE RELEASE) PO PRN (17:04)
[2024-08-25] MEDS: KETOROLAC 30 MG/ML VIAL ONE (17:05)
[2024-08-25] MEDS: HYDROmorphone INJ 1 MG/ML SYRINGE IV PRN (18:08)
[2024-08-25] MEDS: INSULIN ASPART PER UNIT CHARGE SC SCH (19:16)
[2024-08-25] MEDS: DOCUSATE SODIUM/SENNA 50/8.6MG TAB PO SCH (21:27)
[2024-08-25] MEDS: KETOROLAC 30 MG/ML VIAL IV PRN (21:27)
[2024-08-25] MEDS: PREGABALIN 150 MG CAP PO SCH (21:27)
[2024-08-25] MEDS: LANTUS PER UNIT CHARGE SQ SCH (21:28)
[2024-08-26] MEDS: POLYETHYLENE (MIRALAX) 17 GM PACK PO SCH ×2 (05:54→15:45)
[2024-08-26 08:16] LABS: Basophils # (auto) 0.01 K/uL (0.00-0.20); Basophils % (auto) 0.1 %; Hematocrit (blood only) 32.8 % (42.0-52.0); Hemoglobin 11.1 g/dl (14.0-18.0); Immature Granulocytes # (auto) 0.25 K/uL (0.01-0.20); Lymphocytes # (auto) 1.41 K/uL (1.20-3.40); Lymphocytes % (auto) 11.1 %; Mean Corpuscular Hgb Conc 33.8 g/dL (32.0-36.0); Mean Corpuscular Volume 85.6 fL (80.0-100.0); Monocytes # (auto) 0.96 K/uL (0.11-0.59); Monocytes % (auto) 7.6 %; Neutrophils # (auto) 10.08 K/uL (1.40-6.50); Neutrophils % (auto) 79.2 %; Platelet Count 242 K/uL (130-400); RDW Coefficient of Variation 13.3 % (11.5-14.5); RDW Standard Deviation 40.6 fL (36.4-46.3); Red Blood Count 3.83 M/uL (4.70-6.10); White Blood Count 12.71 K/ul (4.8-10.8)
[2024-08-26] MEDS: ASPIRIN 81 MG ECTAB PO SCH (08:19)
[2024-08-26] MEDS: dexAMETHasone 6 MG in SYRINGE 0 ML IV SCH (08:19)
[2024-08-26] MEDS: CHOLECALCIFEROL 25 MCG (1000 UNITS) TAB PO SCH (08:20)
[2024-08-26] MEDS: METOPROLOL SUCC 25MG EXT REL TAB PO SCH (08:20)
[2024-08-26] MEDS: FENOFIBRATE NANOCRYSTALLIZED 145 MG TABLET PO SCH (08:20)
[2024-08-26] MEDS: MULTIVITAMIN TAB PO SCH (08:20)
[2024-08-26] MEDS: ATORVASTATIN 40 MG TAB PO SCH (08:20)
[2024-08-26] MEDS: FLUTICASONE PROPIONATE NA SPR 16 GM BTL SCH (08:21)
[2024-08-26] MEDS ORDERED: lisinopril 40 MG TAB PO SCH (09:00)
[2024-08-26] MEDS ORDERED: NON-FORMULARY MEDICATION (Potassium 99 mg Tablet) PO SCH (09:00)
[2024-08-26 09:25] LABS: Calcium 9.1 mg/dl (8.6-10.3); Potassium 4.7 mmol/L (3.5-5.1)
--- NOTE | 2024-08-26 10:36 | Pharmacy Report ---
Pharmacy Glycemic Short Note 2 - Date of Service August 26, 2024 - Glycemic Short BSG Results (Last 24 hours): 08/25/24 08/25/24 08/25/24 12:53 16:56 20:40 Glucose POC Glucose 183 H 148 H 192 H 08/26/24 08/26/24 07:10 07:43 Glucose 180 H POC Glucose 196 H OUTPATIENT ANTIDIABETIC REGIMEN: * Lantus 30 units SQ QHS * metformin 1000mg PO BID * Ozempic 0.5mg SQ weekly HbA1c: 7.1% on 08/04/24 ASSESSMENT: * 49 year old male admitted 08/25 for lumbar decompression and fusion (POD #1). Pharmacy has been consulted for glycemic management postop. * Preop BSG was 149mg/dL and postop BSG was 183mg/dL. Patient received dexamethasone 8mg iv x 1 preop. Lantus 20 units SQ Q HS and a weight based bolus insulin regimen with a stress of 2 were started last evening. * Fasting BSG this morning was 196mg/dL. Patient is ordered dexamethasone 6mg iv qam x 3 days. Lantus was increased to 25 units at bedtime and the Novolog will be continued without change. PLAN FOR INPATIENT GLYCEMIC CONTROL: * Hold outpatient diabetes medications * Basal insulin * Lantus 25 units SQ QHS * Bolus insulin * NovoLog per scale ACHS or Q6hrs while NPO * Goal Range: Low 110 mg/dL - High 140 mg/dL * Correction Factor: 20 mg/dL/unit * Nutritional / Prandial insulin per carb ratio of 1 unit per 6 grams CHO consumed
--- NOTE | 2024-08-26 11:32 | Orthopedic Progress Note ---
Date of Service August 26, 2024 Assessment & Plan (1) Multilevel lumbosacral spondylosis with radiculopathy: Plan: At this time initiate physical therapy monitor his SARAH output hopefully discharge home in the next few days. Admission and Anticipated Discharge Date Admission Date: August 25, 2024 Subjective Back pain controlled leg pain stable Physical Exam Physical Exam: Patient is currently in bed. He is neurologically intact. With good strength testing. Results & Data Vital Signs (Past 12 Hours) Vital Signs Temp Pulse Pulse Resp BP Pulse Ox O2 Del Method 08/26/24 08:00 Room Air 08/26/24 07:30 36.6 C 82 14 112/76 91 Room Air 08/26/24 02:59 36.6 C 86 20 99/64 L 95 Nasal Cannula O2 Flow Rate 08/26/24 08:00 08/26/24 07:30 08/26/24 02:59 2 Queries Orthopedic Spine Obesity: Yes
--- NOTE | 2024-08-26 17:02 | Hospitalist Progress Note ---
Date of Service August 26, 2024 Assessment & Plan (1) Multilevel lumbosacral spondylosis with radiculopathy: (2) CAD (coronary artery disease): (3) Diabetes mellitus, type 2: (4) Hypertension: (5) Hyperlipidemia: Plan per previous hospitalist notes with addendum: 49 year old male with PMH significant for CAD and NSTEMI s/p cath and stent placement (2022), DMII, HTN, HLD, FELIX, and multilevel lumbosacral spondylosis with radiculopathy who is status post L3-S1 decompression and fusion by Dr. Ocampo whom we were consulted for post operative medical management. Multilevel lumbosacral spondylosis with radiculopathy s/p L3-S1 decompression and fusion Post op day 0 Pain control, DVT prophylaxis, and activity per primary team SARAH drain management per primary team Encourage incentive spirometry Monitor AM labs for post op anemia 08/26 Blood pressure on the lower side, hold lisinopril Start IV fluids Acute blood loss anemia Repeat hemoglobin in the morning CAD, HLD Holding Brilinta until cleared by primary team Continue baby aspirin, atorvastatin, metoprolol per home dosing DMII Patient reports adequate glycemic control with sugars ranging 80-120 Patient is on ozempic at home - holding while inpt Monitor ACHS blood sugars SSI insulin and lantus 20 units HS (home dose is 30 units HS) while inpatient Pharmacy consult placed by primary team HTN Patient reports blood pressures are well controlled since adding beet root to his medication regimen Monitor BPs overnight Holding lisinopril in light of borderline blood pressure Admission and Anticipated Discharge Date Admission Date: August 25, 2024 Subjective follow-up for status post lumbar spine surgery, etc. Seen resting in bed, at the bedside chair, not in distress Very pleasant States he is still having significant low back pain today, most exacerbated with movement Pain seems to be improved compared to yesterday though Leg numbness seems to be improving since surgery as per patient Had some dizziness while ambulating in the hallways today, but improved No chest pain, shortness of breath, nausea Positive constipation No other new symptoms Review of Systems Review of Systems: all noted and negative except for above Physical Exam Physical Exam: General- oriented x 3, not in distress, speaks in sentences with no effort or accessory muscle use Eyes- anicteric Neck- no JVD Lungs- clear breath sounds bilaterally, no rales/wheezes Heart- normal rate, regular rhythm; no murmurs Abdomen- normal bowel sounds, nondistended, soft, nontender Extremities- no pretibial edema, no calf tenderness back-drain in place with serosanguineous output Neuro- alert, oriented x 3; no gross focal neurologic deficits Skin- warm & dry Results & Data Results & Data Vital Signs (Past 12 Hours) Vital Signs Temp Pulse Pulse Resp BP Pulse Ox O2 Del Method 08/26/24 16:12 36.8 C 68 18 98/70 L 91 Room Air 08/26/24 15:41 36.4 C L 72 18 116/69 94 Room Air 08/26/24 11:45 36.6 C 80 18 112/82 93 Room Air 08/26/24 08:00 Room Air 08/26/24 07:30 36.6 C 82 14 112/76 91 Room Air all noted and reviewed including below
[2024-08-26] MEDS: SODIUM CHLORIDE 0.9% 1,000 ML IV SCH (17:29)
[2024-08-26] MEDS: LANTUS PER UNIT CHARGE SQ SCH (20:57)
[2024-08-27 07:15] LABS: Basophils # (auto) 0.01 K/uL (0.00-0.20); Basophils % (auto) 0.1 %; Hematocrit (blood only) 31.2 % (42.0-52.0); Hemoglobin 10.4 g/dl (14.0-18.0); Immature Granulocytes # (auto) 0.08 K/uL (0.01-0.20); Immature Granulocytes % (auto) 0.7 %; Lymphocytes % (auto) 21.1 %; Mean Corpuscular Hgb Conc 33.3 g/dL (32.0-36.0); Mean Corpuscular Volume 86.9 fL (80.0-100.0); Monocytes # (auto) 1.17 K/uL (0.11-0.59); Monocytes % (auto) 10.7 %; Neutrophils # (auto) 7.36 K/uL (1.40-6.50); Neutrophils % (auto) 67.4 %; Platelet Count 240 K/uL (130-400); RDW Coefficient of Variation 13.5 % (11.5-14.5); RDW Standard Deviation 42.5 fL (36.4-46.3); Red Blood Count 3.59 M/uL (4.70-6.10); White Blood Count 10.92 K/ul (4.8-10.8)
[2024-08-27 08:07] LABS: Calcium 8.9 mg/dl (8.6-10.3); Potassium 4.8 mmol/L (3.5-5.1)
[2024-08-27 08:13] LABS: BUN Creatinine Ratio 26.5 (10-20); Creatinine Clr Calc Pharmacy 130.5 ml/min
--- NOTE | 2024-08-27 08:37 | Orthopedic Progress Note ---
Date of Service August 27, 2024 Assessment & Plan (1) Multilevel lumbosacral spondylosis with radiculopathy: Plan: Patient is stable postoperative or 2. Still requiring IV pain medication. Needs to ambulate with physical therapy and become more independent getting himself in and out of bed and to and from the bathroom. Organ to hold off on any type of discharge today and we will see how he does throughout the day. Will continue with GI DVT prophylaxis and physical therapy. Will see how he is doing tomorrow possibly getting home either tomorrow or Saturday. Admission and Anticipated Discharge Date Admission Date: August 25, 2024 Subjective Patient was seen bedside in room 375. He is postoperative day #2 status post lumbar decompression and fusion from L3-S1. He still having significant amount of back pain. He is had a hard time getting out of bed and moving around. He has been using IV pain medication to help control his symptoms. He is not having any nausea. He is tolerating p.o. He is asking for a cheeseburger. He denies any other numbness, tingling, or paresthesias. Physical Exam Physical Exam: On exam he is alert and oriented. He answers questions appropriately. He is able to lift his legs to gravity. 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 His calves are supple and nontender his abdomen soft nontender. Results & Data Vital Signs (Past 12 Hours) Vital Signs Temp Pulse Resp BP BP Pulse Ox O2 Del Method 08/27/24 07:39 36.3 C L 78 16 143/85 H 96 Room Air 08/26/24 21:03 36.4 C L 67 20 133/81 96 Room Air
--- NOTE | 2024-08-27 16:41 | Hospitalist Progress Note ---
Date of Service August 27, 2024 Assessment & Plan (1) Multilevel lumbosacral spondylosis with radiculopathy: (2) CAD (coronary artery disease): (3) Diabetes mellitus, type 2: (4) Hypertension: (5) Hyperlipidemia: Plan per previous hospitalist notes with addendum: 49 year old male with PMH significant for CAD and NSTEMI s/p cath and stent placement (2022), DMII, HTN, HLD, FELIX, and multilevel lumbosacral spondylosis with radiculopathy who is status post L3-S1 decompression and fusion by Dr. Ocampo whom we were consulted for post operative medical management. Multilevel lumbosacral spondylosis with radiculopathy s/p L3-S1 decompression and fusion Post op day 0 Pain control, DVT prophylaxis, and activity per primary team SARAH drain management per primary team Encourage incentive spirometry Monitor AM labs for post op anemia 08/26 Blood pressure on the lower side, hold lisinopril Start IV fluids Acute blood loss anemia Repeat hemoglobin in the morning 08/27 globin 10 Asymptomatic DC IV fluids CAD, HLD Holding Brilinta until cleared by primary team Continue baby aspirin, atorvastatin, metoprolol per home dosing DMII Patient reports adequate glycemic control with sugars ranging 80-120 Patient is on ozempic at home - holding while inpt Monitor ACHS blood sugars SSI insulin and lantus 20 units HS (home dose is 30 units HS) while inpatient Pharmacy consult placed by primary team HTN Patient reports blood pressures are well controlled since adding beet root to his medication regimen Monitor BPs overnight Holding lisinopril to prevent hypotension Will monitor blood pressure closely Admission and Anticipated Discharge Date Admission Date: August 25, 2024 Subjective Follow-up for status post lumbar spine decompression procedure, etc. Seen resting in bedside chair, comfortable, not in distress States back pain is much better today compared to yesterday Ambulated in the hallways today with no problems Had minimal dizziness, resolved No shortness of breath, chest pain positive constipation x 2 to 3 days, no abdominal pain, positive flatus No other new symptoms Review of Systems Review of Systems: all noted and negative except for above Physical Exam Physical Exam: General- oriented x 3, not in distress, speaks in sentences with no effort or accessory muscle use Eyes- anicteric Neck- no JVD Lungs- clear breath sounds bilaterally, no rales/wheezes Heart- normal rate, regular rhythm; no murmurs Abdomen- normal bowel sounds, nondistended, soft, nontender Extremities- no pretibial edema, no calf tenderness Neuro- alert, oriented x 3; no gross focal neurologic deficits Skin- warm & dry Results & Data Results & Data Vital Signs (Past 12 Hours) Vital Signs Temp Pulse Resp BP BP Pulse Ox O2 Del Method 08/27/24 15:13 36.8 C 79 18 120/75 93 Room Air 08/27/24 07:39 36.3 C L 78 16 143/85 H 96 Room Air all noted and reviewed including below
[2024-08-27] MEDS: LACTULOSE SYRUP 30 GM/45 ML UDP PO STA (17:51)
[2024-08-27] MEDS: MAGNESIUM HYDROXIDE SUSP 30 ML UDC PO PRN (20:19)
[2024-08-27] MEDS: traMADol HCL 50 MG TABLET PO PRN (20:19)
[2024-08-27 21:47] VITALS: RESP 20
[2024-08-28 07:42] VITALS: BP 133/88; PULSE 72; TEMP 97.5; O2SAT 93
--- NOTE | 2024-08-28 09:25 | Pharmacy Report ---
Pharmacy Glycemic Short Note 2 - Date of Service August 28, 2024 - Glycemic Short BSG Results (Last 24 hours): 08/27/24 08/27/24 08/27/24 11:20 16:34 20:20 POC Glucose 145 H 147 H 139 H 08/28/24 07:56 POC Glucose 124 H OUTPATIENT ANTIDIABETIC REGIMEN: * Lantus 30 units SQ QHS * metformin 1000mg PO BID * Ozempic 0.5mg SQ weekly HbA1c: 7.1% on 08/04/24 ASSESSMENT: 08/28: * Patient received a total of 61 units of insulin yesterday (25 units were basal and 36 units were bolus). Blood glucose was well controlled. BSGs were [phone]/dL. Bolus insulin parameters will be continued without ch chuck. * Fasting BSG was within goal range this morning, will continue current dose of Lantus. 08/26: * 49 year old male admitted 08/25 for lumbar decompression and fusion (POD #1). Pharmacy has been consulted for glycemic management postop. * Preop BSG was 149mg/dL and postop BSG was 183mg/dL. Patient received dexamethasone 8mg iv x 1 preop. Lantus 20 units SQ Q HS and a weight based bolus insulin regimen with a stress of 2 were started last evening. * Fasting BSG this morning was 196mg/dL. Patient is ordered dexamethasone 6mg iv qam x 3 days. Lantus was increased to 25 units at bedtime and the Novolog will be continued without change. PLAN FOR INPATIENT GLYCEMIC CONTROL: * Hold outpatient diabetes medications * Basal insulin * Lantus 25 units SQ QHS * Bolus insulin * NovoLog per scale ACHS or Q6hrs while NPO * Goal Range: Low 110 mg/dL - High 140 mg/dL * Correction Factor: 20 mg/dL/unit * Nutritional / Prandial insulin per carb ratio of 1 unit per 6 grams CHO consumed
--- NOTE | 2024-08-28 09:51 | Discharge Summary ---
Date of Service August 28, 2024 Admission HPI Per Admitting Provider This is a 49-year-old male who presents with chronic persistent back and leg pain after failing course of nonoperative care is here for surgical intervention. Principal Diagnosis Multilevel spondylosis with radiculopathy Discharge Data Allergies Allergy/AdvReac Type Severity Reaction Status Date / Time shellfish derived Allergy Intermediate severe Verified 08/25/24 08:22 rash with allergy testing Consultations 08/25/24 15:44 Consult Hospitalist Routine Procedures Performed Operation Date: 08/25/24 09:35 Actual Procedures p L3-S1 Decompression and Fusion, Spinal Cord Monitoring(Not Applicable) - Brennan Ocampo DO Ordered Studies 08/25/24 09:35 FL lumbar spine 2-3V Routine Hospital Course (1) Multilevel lumbosacral spondylosis with radiculopathy: Patient underwent multilevel lumbar depression fusion tolerates well was taken to orthopedic for postoperative. Postop he progressed appropriately with physical therapy. Pain controlled. SARAH drain decreasing. Excellent strength testing. Simply discharged home. Discharge orders instructions from the chart for further review. Total Time Total Time Spent Total Time Spent (In Minutes): 20 minutes Discharge Plan Discharge Items Patient Disposition: Home - Self-Care Reason For Visit: Lumbar Disc Herniation with Radiculopathy, Retroli Discharge Diagnosis: Lumbar spondylosis with radiculopathy Activity: As commented below Non-emergency contact: Primary Care Provider Call non-emergency contact if: you have any medication questions Follow-up/Referrals: Shane Worthington [Primary Care Provider] - Diet: Regular Addtl Attending Provider Instructions: ACTIVITY RECOMMENDATIONS: SELF CARE INSTRUCTIONS AFTER THORACIC/LUMBAR FUSIONS 1. You may walk to your tolerance. It is good exercise for your legs and back. Expect some back and intermittent leg aches and pains. 2. You may perform "counter-top" level activities (make a sandwich, yaniv with a project, etc.). 3. No bending or lifting of more than 10 pounds or back twisting of any nature (roll like a log when turning in bed). 4. You may ride in a car for 20-30 minutes at a time. No driving until after your first visit with your doctor. 5. Frequent changes of position and restricting sitting to 30 minutes at a time will help limit the amount of back spasms and stiffness you may experience. 6. You may discontinue the use of ambulatory aids (cane, crutches, etc.) once your strength and confidence allow. 7. 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 Do not take a tub bath, sit in a hot tub or go into a swimming pool until after your first recheck in the office. 8. You may resume previous diet. SPECIAL CARE INSTRUCTIONS: VERY IMPORTANT TO READ AND REVIEW A. Your surgical incision has been closed with a cosmetic suture under the skin that will dissolve in about 6 weeks. In 14 days, you can use a pair of clean scissors and cut the suture that is left outside of the skin at the ends of your incision. 1. The small skin tapes can be removed 7 days after surgery if they have not fallen off by that point. 2. You may keep the wound open to air as much as possible to promote healing after post-op day number 5 unless told otherwise by your doctor. 3. If you think the wound looks like it is becoming infected (redness or worsening drainage) and/or you are experiencing fever, chill or worsening back pain and muscle spasms, contact the office so that we may evaluate you as soon as possible. B. Complications are uncommon, but please contact us if you have any signs or symptoms of: 1. wound infection (fever higher than 102.5 degrees F, redness, separation of wound, drainage, or increasing pain from the incision) 2. blood clots in legs (pain, swelling, redness and warmth in legs) 3. urinary tract infection (fever higher than 102.5 degrees F, burning upon urination or increased frequency of urination) 4. nerve problems (inability to walk on your toes or heels, numbness, loss of bowel or bladder control) 5. any other symptoms that concern you C. Please call the office at if you have any concerns or questions about your operation or recovery. D. No smoking! Smoking drastically decreases the chance of a solid fusion. E. Do not take any anti-inflammatory medications (Indocin, Advil, Motrin, Aspirin, Naprosyn, etc.) as these may inhibit the chance of a solid fusion. Tylenol is okay to take for pain. MANAGING PAIN AFTER SPINAL SURGERY 1. Narcotic medication is intended for short-term use and will be provided for surgical pain. Surgical pain usually lasts for a period of 4-6 weeks. Narcotic medication includes Percocet, Vicodin, Darvocet, Tylenol #3 or Lortab. 2. Longer-term pain is more appropriately treated with non-narcotic medication such as Tylenol ES. 3. Muscle spasm is not appropriately treated with narcotics. Muscle relaxers such as Soma, Flexeril or Skelaxin can be used along with Tylenol ES. 4. Remember that we all live with some "aches and pains". This is not unusual or uncommon after an injury or as we get older. a. Back pain is expected and may include muscle spasms for 4 to 6 weeks after surgery. The pain should gradually improve. If the pain worsens for no apparent reason, please contact the office. b. Intermittent leg pain may also be experienced and should not be concerned about unless it worsens for no apparent reason. If so, please contact the office. 5. We will provide appropriate medication within the normal guidelines of their prescribed use. We will also be very cautious and aware of potential abuse and extended duration of patients' medication needs. a. Pain medications are for your comfort and to assist with sleep and rest so that the tissue can heal. They are not provided in order to return to normal activity and should not be used through the day. To do so or worsening pain at night can result from ongoing tissue damage and development of tolerance to the prescribed medicine. 6. Please allow 2-3 days to process refills. Prescriptions will not be mailed but must be picked up at the office. FOLLOW UP VISIT: Keep your scheduled follow-up appointment. Any questions, please call the office at . Pending Studies at Discharge: No Stand-Alone Forms: [facility], Smoking Cessation Medications and DC Order Prescriptions: New tramadol 50 mg tablet 50 mg PO Q6H PRN (Reason: pain, moderate) Qty: 30 0RF oxycodone 5 mg tablet 5 mg PO Q6H PRN (Reason: pain) Qty: 30 0RF cyclobenzaprine 10 mg Tablet 10 mg PO Q8 PRN (Reason: muscle spasm) Qty: 20 0RF Continued metformin 500 mg Tablet 1,000 mg PO BID tramadol 50 mg Tablet 50 mg PO BID baclofen 10 mg Tablet 10 mg PO TID fluticasone propionate 50 mcg/actuation [place],Suspension 1 spray INTRANASAL QAM Rx Instructions: administer into each nostril pregabalin [Lyrica] 150 mg Capsule 150 mg PO BID cholecalciferol (vitamin D3) [Vitamin D3] 25 mcg (1,000 unit) Tablet 25 mcg PO DAILY Brilinta 60 mg Tablet 60 mg PO BID aspirin 81 mg Tablet,Delayed Release (Dr/Ec) 81 mg PO QAM fenofibrate nanocrystallized [Tricor] 145 mg Tablet 145 mg PO QAM potassium 99 mg Tablet 99 mg PO QAM multivitamin Tablet 1 tab PO QAM omega 2-xvl-pwk-fish oil [Fish Oil] 1,000 (120-180) mg Capsule 1 cap PO TID Beet Root 1 tab PO QAM atorvastatin [Lipitor] 80 mg Tablet 80 mg PO QAM lisinopril [Zestril] 40 mg Tablet 40 mg PO QAM insulin glargine [Lantus U-100 Insulin] 100 unit/mL Solution 30 unit SUBCUT HS Ozempic 0.25 mg or 0.5 mg (2 mg/3 mL) Pen Injector 0.5 mg SUBCUT WK metoprolol succinate [Toprol XL] 25 mg Tablet Extended Release 24 Hr 25 mg PO QAM Discharge Orders: Discharge Order (Routine); Ordered 08/28/24 Ordered By: Brennan Ocampo Admission Data Admit Date/Time: 08/25/24 12:48 Attending Provider: Brennan Ocampo Admit Provider: Brennan Ocampo Primary Care Provider: Shane Worthington Other Providers: Vivian Morrissey; Geovanny Baker
== END 2024-08-28 13:39 | disposition home or self-care (01) | DRG 427 ==
LOC: ASU 07:55 → 3N 12:48